=== PATIENT | female | born 1985 | race Caucasian/White ===

== ENCOUNTER 2017-06-16 10:04 | Outpatient (RCR) | payer OTHER | END 2017-08-20 10:27 | disposition home or self-care (01) | LOC: WSOH 10:04 | DX: S76.012A Strain of muscle, fascia and tendon of left hip, initial encounter (principal); X50.3XXA Overexertion from repetitive movements, initial encounter; Y93.39 Activity, other involving climbing, rappelling and jumping off; Y99.0 Civilian activity done for income or pay ==

== ENCOUNTER → 2017-06-16 | Outpatient (REF) | LOC: WSOH 10:07 | DX: Z02.89 Encounter for other administrative examinations (principal) ==